=== PATIENT | male | born 1995 | race Two or more races ===

== ENCOUNTER 2016-12-01 14:28 | Emergency (ER) | payer OTHER ==
[~2016-12-01] VITALS: Ht 157.5 cm; Wt 61.2 kg
[2016-12-01 14:54] VITALS: BP 148/78
[2016-12-01] MEDS ORDERED: Lidocaine 2% Visc 15ml soln ORAL ONE (15:00)
[2016-12-01] MEDS ORDERED: Mylanta II UD 30ml ORAL ONE (15:00)
[2016-12-01] MEDS ORDERED: Dicyclomine HCl 10mg/5ml oral soln ORAL ONE (15:00)
--- NOTE | 2016-12-01 15:22 | Emergency Room Report ---
History of Present Illness General Chief Complaint: General Complaint Source: Patient Present Illness HPI 21-year-old male presents emergency department complaining of nausea and vomiting x3 days. Patient reports history of similar episodes over the course of the last 8 months which resolved with treatment she received in emergency Department. Patient states he never followed up with PCP for his symptoms. Patient denies ill contacts, recent travel, abdominal pain, blood in the vomit, blood in stool or dark tarry stools. Patient reports mild burning sensation in the throat that began after vomiting. Patient states he vomited a total of 3 times and has been having continued nausea and decided to get evaluated at the ER because his symptoms have not resolved. Patient denies fevers or chills, he denies significant changes in weight or night sweats. Denies CP, Palpitations, LOC, AMS, dizziness, Changes in Vision, Sensation, paresthesias, or a sudden severe headache. Allergies: Coded Allergies: No Known Allergies (Unverified , 12/01/16) Patient History Past Medical History: see triage record Past Surgical History: none Pertinent Family History: none Immunizations: UTD Reviewed Nursing Documentation: PMH: Agreed, PSxH: Agreed Nursing Documentation-PMH Hx Gastrointestinal Problems: Yes - gerd Review of Systems All Other Systems: negative except mentioned in HPI Physical Exam Vital Signs Date Time Temp Pulse Resp B/P Pulse Ox O2 Delivery O2 Flow Rate FiO2 12/01/16 14:54 98.1 90 17 148/78 98 Room Air Sp02 EP Interpretation: reviewed, normal General Appearance: no apparent distress, alert, GCS 15, non-toxic Head: normocephalic, atraumatic Eyes: bilateral eye PERRL, bilateral eye normal inspection ENT: hearing grossly normal, normal pharynx, no angioedema, normal voice Neck: full range of motion, supple/symm/no masses Respiratory: lungs clear, normal breath sounds, speaking full sentences Cardiovascular #1: regular rate, rhythm, no edema Gastrointestinal: normal bowel sounds, non tender, soft, no guarding, no rebound Rectal: deferred Genitourinary: normal inspection, no CVA tenderness Musculoskeletal: back normal, gait/station normal, normal range of motion, non- tender Neurologic: alert, oriented x3, responsive, motor strength/tone normal, sensory intact, speech normal Psychiatric: judgement/insight normal, memory normal, mood/affect normal, no suicidal/homicidal ideation Skin: normal color, no rash, warm/dry, well hydrated Lymphatic: no adenopathy Medical Decision Making PA Attestation Dr. Stark is my supervising Physician whom patient management has been discussed with. Diagnostic Impression: Primary Impression: Gastritis Qualified Codes: K29.70 - Gastritis, unspecified, without bleeding Additional Impression: Nausea & vomiting Qualified Codes: R11.2 - Nausea with vomiting, unspecified ER Course 21-year-old male presents emergency department complaining of nausea and vomiting x3 days. Patient reports history of similar episodes over the course of the last 8 months which resolved with treatment she received in emergency Department. Patient states he never followed up with PCP for his symptoms. Patient denies ill contacts, recent travel, abdominal pain, blood in the vomit, blood in stool or dark tarry stools. Patient reports mild burning sensation in the throat that began after vomiting. Patient states he vomited a total of 3 times and has been having continued nausea and decided to get evaluated at the ER because his symptoms have not resolved. Patient denies fevers or chills, he denies significant changes in weight or night sweats Ddx considered but are not limited to GE, colitis, acute appy, SBO, gastritis, Cancer Vital signs: pt. is afebrile, H&PE are most consistent with GE ORDERS: none required at this time, the diagnosis is clinical ED INTERVENTIONS: -Gi Cocktail - 4mg zofran -Patient is able to tolerate oral fluids after above interventions I feel that this patient is stable for outpatient followup. Discussed with patient the importance of following up with PCP especially since he has had multiple episodes of symptoms for the past 8 months discussed with patient that visiting local emergency departments is not a thorough evaluation as we simply ensure that an emergency as not occurring that there are multiple other causes for the symptoms that he needs to be of value he for. -he verbalizes his understanding and agreement with this treatment plan DISCHARGE: At this time pt. is stable for d/c to home. Will provide printed patient care instructions, and any necessary prescriptions. Care plan and follow up instructions have been discussed with the patient prior to discharge. Last Vital Signs Date Time Temp Pulse Resp B/P Pulse Ox O2 Delivery O2 Flow Rate FiO2 12/01/16 14:54 98.1 90 17 148/78 98 Room Air Disposition: HOME, SELF-CARE Condition: Stable Scripts Ranitidine Hcl* (ZANTAC*) 150 Mg Tablet 150 MG ORAL TWICE A DAY for 30 Days, #60 TAB Prov: Emeli Murphy 12/01/16 Ondansetron Odt* (ZOFRAN ODT*) 4 Mg Tab.rapdis 4 MG ORAL Q8H Y for Nausea & Vomiting, #30 TAB 0 Refills Prov: Emeli Murphy 12/01/16 Departure Forms: Return to School Return to School On: Dec 03, 2016 School Release Restrictions: None Return to Full Activity: Dec 03, 2016 Patient Instructions: Gastritis, Adult, [id number] Additional Instructions: Take medications as directed. Follow up with PCP in 3-5 days Return sooner to ED if new symptoms occur, or current symptoms become worse. - Please note that this Emergency Department Report was dictated using [employer] technology software, occasionally this can lead to erroneous entry secondary to interpretation by the dictation equipment. Emeli Murphy Dec 01, 2016 15:22
[2016-12-01] MEDS ORDERED: ZOFRAN ODT4 MG ORAL (15:43)
[2016-12-01] MEDS ORDERED: ZANTAC150 MG ORAL (15:43)
[2016-12-01 16:03] VITALS: BP 116/70
== END 2016-12-01 16:04 | disposition home or self-care (01) ==
LOC: EMR 15:29
DX: K29.70 Gastritis, unspecified, without bleeding (principal); K21.9 Gastro-esophageal reflux disease without esophagitis; R11.2 Nausea with vomiting, unspecified
CPT/HCPCS: 99284